=== PATIENT | male | born 1990 | race Caucasian/White ===

== ENCOUNTER 2018-09-21 00:31 | Emergency (ER) | payer SELFPAY ==
[~2018-09-21] VITALS: Ht 180.3 cm; Wt 84.0 kg
[2018-09-21] MEDS ORDERED: ACETAMINOPHEN 500MG TABLET PO ONE (01:00)
[2018-09-21] MEDS ORDERED: TETANUS, DIPHTHERIA, PERTUSSIS VAC/PF 0.5ML (>7YR OLD) IM ONE (01:00)
[2018-09-21] MEDS ORDERED: LIDOCAINE HCL 1% 20ML VIAL (Pyxis) INJ INFIL ONE (01:00)
[2018-09-21 03:30] VITALS: BP 133/94
== END 2018-09-21 03:55 | disposition home or self-care (01) ==
LOC: ER 00:31
DX: S01.511A Laceration without foreign body of lip, initial encounter (principal); S09.8XXA Other specified injuries of head, initial encounter; F12.10 Cannabis abuse, uncomplicated; F10.10 Alcohol abuse, uncomplicated; Y90.9 Presence of alcohol in blood, level not specified; Y04.0XXA Assault by unarmed brawl or fight, initial encounter; Y93.89 Activity, other specified; Y92.89 Other specified places as the place of occurrence of the external cause
CPT/HCPCS: 12013; 70450; 90471; 90715; 99284; J3490; Z7610